=== PATIENT | female | born 1930 | race Caucasian/White ===

== ENCOUNTER 2016-06-16 00:13 | Emergency (ER) | payer MEDICARE, MEDICAID ==
[2016-06-16 01:35] LABS: BASOPHIL % 1.5 % (0-2); PLATELET COUNT 137 x10^3mcL (130-400)
[2016-06-16 01:54] LABS: RED CELL DISTRIBUTION WIDTH 18.1 % (11.5-14.5)
[2016-06-16 02:01] LABS: ALKALINE PHOSPHATASE 37 U/L (46-116); ALT/SGPT 27 U/L (14-59); AST/SGOT 21 U/L (15-37); BILIRUBIN TOTAL 0.67 mg/dL (0.20-1.00); CHLORIDE SERUM 107 mmol/L (98-107); CREATININE SERUM 3.7 mg/dL (0.6-1.0); GLUCOSE SERUM 86 mg/dL (74-106); HDL CHOLESTEROL 42 mg/dL (40-60); POTASSIUM SERUM 4.3 mmol/L (3.5-5.1); SODIUM SERUM 148 mmol/L (136-145)
[2016-06-16 02:02] LABS: ALBUMIN 2.6 g/dL (3.4-5.0); CHOLESTEROL 92 mg/dL (<200); TOTAL PROTEIN, SERUM 5.4 g/dL (6.4-8.2)
[2016-06-16 03:04] LABS: UA SPECIFIC GRAVITY 1.025 (1.005-1.035); microscopic required? YES; urine erythrocyte 1+ (NEGATIVE)
[2016-06-16 04:40] VITALS: BP 88/55
== END 2016-06-16 04:40 | disposition home or self-care (01) ==
LOC: ED 00:13
PROVIDERS: Emergency Medicine
DX: G93.41 Metabolic encephalopathy (principal); I11.0 Hypertensive heart disease with heart failure; I50.9 Heart failure, unspecified; I21.4 Non-ST elevation (NSTEMI) myocardial infarction; J96.90 Respiratory failure, unspecified, unspecified whether with hypoxia or hypercapnia; N19 Unspecified kidney failure; J44.9 Chronic obstructive pulmonary disease, unspecified
CPT/HCPCS: 36600; 83880; Q0092